=== PATIENT | male | born 1970 | race Caucasian/White ===

== ENCOUNTER 2025-06-09 09:28 | Emergency (ER) | payer BC, SELFPAY ==
[2025-06-09 09:31] VITALS: BP 178/102
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
== END 2025-06-09 12:29 | disposition home or self-care (01) ==
LOC: EMR 09:28
PROVIDERS: EMERGENCY PHYSICIAN Emergency Medicine
DX: S62.614A Displaced fracture of proximal phalanx of right ring finger, initial encounter for closed fracture (principal); W20.8XXA Other cause of strike by thrown, projected or falling object, initial encounter; Y93.H3 Activity, building and construction
CPT/HCPCS: 99283; 29130; 73130